=== PATIENT | female | born 1975 | race Caucasian/White ===

== ENCOUNTER → 2018-07-29 | Outpatient (CLI) | payer BC ==
[~2018-07-29] MED LIST: HYDR1TAB PO
--- NOTE | 2018-07-29 18:06 | Diagnostic Imaging Report ---
INDICATION: Routine screening. Comparison is made with prior mammogram from 06/24/2012. 2-D and 3-D bilateral screening mammography was performed with Computer-Aided Detection (CAD) system. FINDINGS: Both breasts remain heterogeneously dense, limiting the sensitivity of mammography. The parenchymal pattern is stable. No dominant mass or malignant-appearing microcalcifications are seen. The axillae are unremarkable. IMPRESSION: No mammographic features suspicious for malignancy are identified. ACR BI-RADS Category 1: Negative. Result letter will be mailed to the patient. Note: At least 10% of breast cancer is not imaged by mammography. Dictated by: Dictated on workstation # [id number]
== END ==
LOC: RAD 08:00
PROVIDERS: ATTEND Internal Medicine
DX: Z12.31 Encounter for screening mammogram for malignant neoplasm of breast (principal)
CPT/HCPCS: 77067

== ENCOUNTER 2019-06-24 00:33 | Emergency (ER) | payer BC ==
[~2019-06-24] VITALS: Ht 170 cm; Wt 95.0 kg
--- NOTE | 2019-06-24 00:49 | ED EENT ---
History of Present Illness General Chief Complaint: Cough/Cold/Flu Symptoms Stated Complaint: PT STS CAN'T SWALLOW,COUGH,POSS FEVER Source: patient History of Present Illness Date Seen by Provider: Jun 24, 2019 Time Seen by Provider: 00:45 Initial Comments PT ARRIVES VIA POV FROM HOME C/O SEVERE SORE THROAT--"CAN'T SWALLOW" DUE TO PAIN--STARTED ON LEFT SIDE, NOW IS ON BOTH SIDES C/O FEVER UP TO 101 C/O BODY ACHES NO COUGH/CONGESTION C/O LEFT EAR PAIN SYMPTOMS BEGAN YESTERDAY CALLED DR. NAPIER'S OFFICE TODAY, AND PT STATES THE NURSE "SHE TOLD ME I HAD THE FLU" AND RX FOR TAMIFLU CALLED IN--HAS TAKEN 2 DOSES TODAY TOOK 1 IBUPROFEN AT 1530 TODAY OTHERWISE HAS NOT TAKEN ANYTHING ANYTHING ELSE FOR SYMPTOMS STATES HER SON IS NOW STARTING TO GET SAME SYMPTOMS PCP: DR. NAPIER Allergies and Home Medications Allergies Coded Allergies: Penicillins (Verified Allergy, Mild, 10/13/12) Patient Home Medication List Home Medication List Reviewed: Yes Review of Systems Review of Systems Constitutional: see HPI, chills, fever, malaise Eyes: No Symptoms Reported Ears: See HPI, Pain Nose: no symptoms reported; denies congestion Mouth: no symptoms reported Throat: see HPI, pain; denies neck stiffness, denies hoarse, denies aphonia, denies muffled; painful swallowing; denies difficulty with fluids Respiratory: no symptoms reported; No cough, No short of breath Cardiovascular: no symptoms reported Gastrointestinal: no symptoms reported; No nausea, No vomiting LMP: Jun 05, 2019 Musculoskeletal: see HPI (BODY ACHES) Skin: no symptoms reported Neurological: Headache Hematologic/Lymphatic: No Symptoms Reported Immunological/Allergic: no symptoms reported Past Szcgkah-[id number]-Ysfnsp Hx Past Med/Social Hx: Reviewed and Corrections made Patient Social History Alcohol Use: Rarely Uses Recreational Drug Use: No Smoking Status: Never a Smoker Recent Foreign Travel: No Contact w/Someone Who Travel: No Seasonal Allergies Seasonal Allergies: No Past Medical History Surgeries: Yes (CHOLECYSTECTOMY 2012) Gallbladder Respiratory: No Cardiac: No Neurological: No : No Reproductive Disorders: No Sexually Transmitted Disease: No Genitourinary: No Gastrointestinal: Yes (S/P CHOLECYSTECTOMY) Gall Bladder Disease Musculoskeletal: Yes Chronic Back Pain Endocrine: No HEENT: No Cancer: No Psychosocial: No Integumentary: No Blood Disorders: No Physical Exam Vital Signs Vital Signs - First Documented 06/24/19 00:42 Temp 38.8 Pulse 103 Resp 18 B/P (MAP) 122/82 (95) Pulse Ox 99 O2 Delivery Room Air Height, Weight, BMI Height: '" Weight: lbs. oz. kg; BMI Method: General Appearance: WD/WN, no apparent distress Eyes: bilateral eye normal inspection, bilateral eye PERRL, bilateral eye EOMI Ears: right ear auricle normal, right ear canal normal, right ear TM normal; l eft ear TM dull, left ear TM red Nose: normal inspection Mouth/Throat: No excessive drooling, No mandibular swelling, No maxillary swelling, No pharynx swelling; tonsillar exudate; No tonsillar swelling, No trismus, No uvula swelling, No voice changes; other (TONSILS INFLAMED, WITH EXTENSIVE EXUDATES BILATERALLY--RIGHT > LEFT. NO SIGNIFICANT SWELLING OF TONSILS AND NO EVIDENCE OF PERITONSILLAR ABSCESS. ) Neck: full range of motion, supple, lymphadenopathy (R), lymphadenopathy (L) (LEFT > RIGHT) Cardiovascular: regular rate, rhythm, no murmur Respiratory: normal breath sounds, no respiratory distress, no accessory muscle use Gastrointestinal: non tender, soft Neurologic/Psychiatric: control clerk food and beverage II-XII nml as tested, no motor/sensory deficits, alert, normal mood/affect, oriented x 3 Skin: normal color, warm/dry; No rash Progress/Results/Core Measures Results/Orders Lab Results Laboratory Tests Test 06/24/19 00:45 06/24/19 01:39 Range/Units Group A Streptococcus Screen NEGATIVE NEGATIVE Monoscreen NEGATIVE NEGATIVE Micro Results Microbiology 06/24/19 Influenza Types A,B Antigen (VANESSA) - Final, Complete My Orders Orders - TEMI LICONA DO Rapid Strep A Screen (06/24/19 00:42) Influenza A And B Antigens (06/24/19 00:42) Acetaminophen Tablet (Tylenol Tablet) (06/24/19 01:00) Ibuprofen Tablet (Motrin Tablet) (06/24/19 01:00) Ketorolac Injection (Toradol Injection) (06/24/19 01:30) Monotest (06/24/19 01:23) Throat Culture (06/24/19 01:24) Cefdinir Capsule (Omnicef Capsule) (06/24/19 02:00) Medications Given in ED Current Medications Medications Dose Ordered Sig/Radha Route Start Time Stop Time Status Last Admin Dose Admin Acetaminophen 1,000 mg ONCE ONCE PO 06/24/19 01:00 06/24/19 01:01 DC 06/24/19 00:57 1,000 MG Ibuprofen 800 mg ONCE ONCE PO 06/24/19 01:00 06/24/19 01:01 DC 06/24/19 00:58 800 MG Ketorolac Tromethamine 60 mg ONCE ONCE IM 06/24/19 01:30 06/24/19 01:31 DC 06/24/19 01:33 60 MG Vital Signs/I&O 06/24/19 06/24/19 06/24/19 06/24/19 00:42 00:53 00:57 00:58 Temp 38.8 38.8 38.8 Pulse 103 Resp 18 B/P (MAP) 122/82 (95) Pulse Ox 99 O2 Delivery Room Air Room Air Departure Impression Primary Impression: Exudative pharyngitis Additional Impression: Left otitis media Disposition: HOME, SELF-CARE Condition: Stable Departure-Patient Inst. Referrals: JOY NAPIER MD (PCP/Family) Primary Care Physician Patient Instructions: Sore Throat, Adult (DC), Ear Infections (Otitis Media) (DC) Add. Discharge Instructions: LOTS OF CLEAR LIQUIDS FREQUENT SALT WATER GARGLES TYLENOL 1 GRAM/ MOTRIN 800 MG 4 TIMES A DAY FOR PAIN OR FEVER FOLLOW UP WITH YOUR DR IN 3-4 DAYS IF NO BETTER All discharge instructions reviewed with patient and/or family. Voiced understanding. Scripts Methylprednisolone (Medrol) 4 Mg Tab.ds.pk 4 MG PO UD, #1 PKG Prov: TEMI LICONA DO 06/24/19 Cefdinir (Cefdinir) 300 Mg Capsule 300 MG PO BID for FOR INFECTION, #20 CAP Prov: TEMI LICONA DO 06/24/19 TEMI LICONA DO Jun 24, 2019 00:49
[2019-06-24] MEDS ORDERED: IBUPROFEN 800 MG (MOTRIN) TAB PO ONE (01:00)
[2019-06-24] MEDS ORDERED: ACETAMINOPHEN 500 MG TAB (TYLENOL) PO ONE (01:00)
[2019-06-24] MEDS ORDERED: KETOROLAC 60 MG/2 ML VIAL IM ONE (01:30)
[2019-06-24] MEDS ORDERED: predniSONE 20 MG TAB PO ONE (02:00)
[2019-06-24] MEDS ORDERED: CEFDINIR 300 MG (OMNICEF) CAP PO ONE (02:00)
[2019-06-24] MEDS ORDERED: METH4TAB PO (02:02)
[2019-06-24] MEDS ORDERED: CEFD300C3 PO (02:02)
[2019-06-24 02:11] VITALS: BP 122/82
== END 2019-06-24 02:11 | disposition home or self-care (01) ==
LOC: EDUNIT# 00:33 → ER 00:35
DX: J02.9 Acute pharyngitis, unspecified (principal); H66.92 Otitis media, unspecified, left ear; Z88.0 Allergy status to penicillin
CPT/HCPCS: 36415; 86308; 87430; 87804

== ENCOUNTER → 2020-03-24 | Outpatient (CLI) | payer BC ==
[~2020-03-24] MED LIST changes: +CEFD300C3 PO; +METH4TAB PO
== END ==
LOC: LABNPT 08:50
PROVIDERS: ATTEND Internal Medicine
DX: J02.9 Acute pharyngitis, unspecified (principal); Z20.828 Contact with and (suspected) exposure to other viral communicable diseases
CPT/HCPCS: 87635

== ENCOUNTER → 2021-08-16 | Outpatient (CLI) | payer BC ==
--- NOTE | 2021-08-16 09:32 | Diagnostic Imaging Report ---
INDICATION: Routine screening. COMPARISON: 07/29/2018. TECHNIQUE: 2D and 3D bilateral screening mammography was performed with CAD. FINDINGS: Both breasts are heterogeneously dense, limiting the sensitivity of mammography. The parenchymal pattern is stable. No mass or malignant-appearing microcalcifications are seen. There are scattered benign calcifications. The axillae are unremarkable. IMPRESSION: No mammographic features suspicious for malignancy are identified. ACR BI-RADS Category 2: Benign findings. Result letter will be mailed to the patient. Note: At least 10% of breast cancer is not imaged by mammography. Dictated by: Dictated on workstation # [id number]
== END ==
LOC: RAD 08:00
PROVIDERS: ATTEND Nurse Practitioner Family
DX: Z12.31 Encounter for screening mammogram for malignant neoplasm of breast (principal)
CPT/HCPCS: 77063; 77067